=== PATIENT | male | born 1960 | race Native Hawaiian/Other Pacific Islander ===

== ENCOUNTER 2019-03-21 03:17 | Observation (INO) | payer OTHER ==
[~2019-03-21] VITALS: Ht 182.9 cm; Wt 70.8 kg
[2019-03-21 03:29] VITALS: BP 137/107; TEMP 97.9
[2019-03-21 03:59] LABS: PLATELET COUNT 253 K/uL (142-355)
[2019-03-21 04:26] LABS: POTASSIUM 4.5 mmol/L (3.6-5.2); SODIUM 139 mmol/L (136-145)
[2019-03-21 04:45] LABS: PARTIAL THROMBOPLASTIN TIME 23.2 SECONDS (24.5-33.6)
[2019-03-21 06:02] VITALS: BP 144/81; TEMP 98.1; Ht 182.9 cm; Wt 70.8 kg
[2019-03-21 08:00] VITALS: BP 144/88; TEMP 97.7
[2019-03-21 12:00] VITALS: BP 117/60; TEMP 98
[2019-03-21 16:00] VITALS: BP 103/64; TEMP 97.8
[2019-03-21 20:00] VITALS: BP 109/73; TEMP 97.5
== END 2019-03-21 21:55 ==
LOC: ED 03:17 → MED/SURG 05:00
PROVIDERS: Hospitalist; ADMIT Family Medicine
DX: R07.89 Other chest pain (principal); J44.9 Chronic obstructive pulmonary disease, unspecified; I10 Essential (primary) hypertension; R42 Dizziness and giddiness; M54.89 Other dorsalgia; R11.0 Nausea
CPT/HCPCS: 80053; 80061; 80307; 81000; 82550; 83880; 84484; 85027; 85379; 85610; 85730; 93005; 94664; 94760; 96367; 96372; 96374; 96375; 99220; 99284; G0378; J1650; J2270; J2405; J2550